=== PATIENT | male | born 1985 | race Caucasian/White ===

== ENCOUNTER 2022-02-18 12:31 | Emergency (ER) | payer OTHER ==
[~2022-02-18 12:31] MED LIST: ANTIVERT 25MG T25 MG PO
[2022-02-18 14:15] LABS: HEMOGLOBIN 14.9 gm/dl (14.0-17.5); RED BLOOD COUNT 4.97 M/UL (4.20-5.50); WHITE BLOOD COUNT 9.2 K/UL (4.5-11.0)
[2022-02-18 14:37] LABS: BUN/CREATININE RATIO 13 (0-10)
[2022-02-18] MEDS ORDERED: GLUCOPHAGE 500500 MG PO (16:32)
== END 2022-02-18 17:00 | disposition home or self-care (01) ==
LOC: ER1 12:31
PROVIDERS: Physician Assistant
DX: E11.9 Type 2 diabetes mellitus without complications (principal); F17.290 Nicotine dependence, other tobacco product, uncomplicated
CPT/HCPCS: 36600; 80053; 81001; 82009; 82800; 82962; 83036; 85025; 99284